=== PATIENT | female | born 2000 | race American Indian/Alaskan Native ===

== ENCOUNTER 2021-08-26 16:23 | Emergency (ER) | payer SELFPAY ==
[~2021-08-26] VITALS: Ht 154.9 cm; Wt 77.3 kg
[2021-08-26 17:54] LABS: COLLECTION METHOD CLEAN CATCH
[2021-08-26 17:59] LABS: BASO % 0.3 % (0.0-2.0); GRAN # 2.5 K/mm3 (1.4-6.5); GRAN % 61.1 % (42.2-75.2); HEMOGLOBIN 14.6 g/dl (12.0-15.0); LYMPH # 1.3 K/mm3 (1.2-3.4); MEAN CELL VOLUME 85 fl (80.0-95.0); MEAN CORPUSCULAR HEMOGLOBIN 29 pg (26.0-32.0); MEAN CORPUSCULAR HGB CONC 34 g/dl (33.0-37.0); MEAN PLATELET VOLUME 10.4 fl (7.4-10.4); MONO # 0.2 K/mm3 (0.1-0.6); MONO % 5.3 % (1.7-9.3); PLATELET COUNT 271 K/mm3 (130-400); RED BLOOD COUNT 5.05 M/mm3 (4.10-5.30); REDCELL DISTRIBUTION WIDTH-CV 13.2 % (11.5-14.5)
[2021-08-26 18:17] LABS: MUCOUS Present /lpf; PH 6 (5-8); URINE APPEARANCE Cloudy; URINE BACTERIA Rare /hpf; URINE BILIRUBIN Negative (NEGATIVE); URINE BLOOD Negative (NEGATIVE); URINE COLOR Amber; URINE GLUCOSE Negative (NEGATIVE); URINE KETONE 2+ (NEGATIVE); URINE LEUKOCYTE ESTERASE 2+ (NEGATIVE); URINE NITRATE Negative (NEGATIVE); URINE PROTEIN(semi-quant) 2+ (NEGATIVE); URINE UROBILINOGEN Negative (NEGATIVE)
[2021-08-26 18:18] LABS: ALANINE AMINOTRANSFERASE 53 U/L (0-55); ALBUMIN 3.9 gm/dL (3.5-5.0); ALKALINE PHOSPHATASE 88 U/L (40-150); ANION GAP 10 mmol/L (7-16); AST,SGOT 63 U/L (5-34); BLOOD UREA NITROGEN 7 mg/dL (7-19); C-REACTIVE PROTEIN 3.03 mg/dL (0.00-0.50); CALCIUM 8.8 mg/dL (8.4-10.2); CARBON DIOXIDE 24 mmol/L (22-29); CHLORIDE 104 mmol/L (98-107); CREATININE, serum 0.72 mg/dL (0.57-1.11); GLUCOSE 105 mg/dL (70-99); POTASSIUM 3.6 mmol/L (3.5-4.5); SODIUM 138 mmol/L (136-145); TOTAL PROTEIN 7.8 gm/dL (6.2-8.1)
[2021-08-26 18:26] LABS: TROPONIN-I < 0.010 ng/mL (0.00-0.033)
[2021-08-26 18:27] LABS: BILIRUBIN,TOTAL 0.3 mg/dL (0.2-1.2)
[2021-08-26] MEDS ORDERED: OMNICEF 300MG300 MG PO (19:28)
[2021-08-26 19:32] VITALS: TEMP 99.2
[2021-08-26 20:48] VITALS: BP 108/72; PULSE 92
== END 2021-08-26 20:50 | disposition home or self-care (01) ==
LOC: COL.ER 16:23
PROVIDERS: Nurse Practitioner Primary Care
DX: U07.1 COVID-19 (principal); N39.0 Urinary tract infection, site not specified; Z73.0 Burn-out
CPT/HCPCS: J0696; J2405; J7030; Q9967